=== PATIENT | female | born 1960 | race Caucasian/White ===

== ENCOUNTER → 2020-08-28 11:04 | Outpatient (BNVA) | payer MEDICARE, OTHER, SELFPAY | PROVIDERS: PCP Internal Medicine; Visit Provider Internal Medicine Rheumatology | DX: M19.041 Primary osteoarthritis, right hand (principal); M19.042 Primary osteoarthritis, left hand; G62.9 Polyneuropathy, unspecified; M77.12 Lateral epicondylitis, left elbow; E79.0 Hyperuricemia without signs of inflammatory arthritis and tophaceous disease; H54.8 Legal blindness, as defined in USA; H35.30 Unspecified macular degeneration | CPT/HCPCS: 99204 ==